=== PATIENT | male | born 1955 | race Caucasian/White ===

== ENCOUNTER 2017-12-10 02:51 | Emergency (ER) | payer MEDICARE, BC ==
[~2017-12-10] VITALS: Ht 182.9 cm; Wt 130.0 kg
[2017-12-10 02:59] VITALS: BP 217/106; PULSE 60; RESP 20; TEMP 97.4; O2SAT 99
[2017-12-10] MEDS ORDERED: ASPI81CH6 CHEW (03:01)
[2017-12-10] MEDS ORDERED: LEVO.075 PO (03:01)
[2017-12-10] MEDS ORDERED: PROS5TAB PO (03:01)
[2017-12-10] MEDS ORDERED: TAMS5CAP PO (03:01)
[2017-12-10] MEDS ORDERED: BLOOD PRESSURE (03:02)
[2017-12-10] MEDS ORDERED: NABU1TAB33 PO (03:17)
[2017-12-10] MEDS ORDERED: AMLO2.5T PO (03:17)
[2017-12-10] MEDS ORDERED: FINA5TAB2 PO (03:17)
[2017-12-10] MEDS ORDERED: SODIUM CHLOR 0.9% 1000 ML INJ 1,000 ML IV SCH (04:08)
[2017-12-10] MEDS ORDERED: FAMOTIDINE 20 MG/2 ML VIAL IV PUSH ONE (04:15)
[2017-12-10] MEDS ORDERED: SODIUM CHLORIDE 0.9% FLUSH 10 ML FLUSH IV FLUSH PRN (04:15)
[2017-12-10] MEDS ORDERED: MORPHINE SULFATE 4 MG/ML INJ IV PUSH ONE ×2 (04:15→05:30)
[2017-12-10] MEDS ORDERED: ONDANSETRON ODT 4 MG TAB PO ONE (04:15)
--- NOTE | 2017-12-10 04:16 | PD ---
HPI Chief Complaint: Abdominal Pain Time Seen by Provider: 03:39 Travel History International Travel<30 days: No Contact w/Intl Traveler<30days: No Traveled to known affect area: No History of Present Illness HPI The patient is a 62-year-old male who presents to the emergency department for abdominal pain. The patient states his abdominal pain started earlier today at approximately 4 PM when he was in the [place]. The patient thought it was hunger pains at that time and subsequently ate [place] lobster, vegetables, and yellow rice. However, the pains did not improve. Therefore, the patient drove from the [place] to [facility] when he decided to be seen for his abdominal pain. The abdominal pain is periumbilical, nonradiating , associated with mild nausea, but no vomiting. He has had 2 normal bowel movements earlier today without difficulty. He denies any dysuria, frequency, or urgency. He denies any previous history of abdominal surgeries, pancreatitis , biliary colic, or known gallstones. He has had previous colonoscopies with polyps in the past which have been monitored but denies any known history of colon cancer. He denies any associated fever, chills, or sweats. Symptoms are moderate. PFSH Past Medical History Narrative Medical Hypertension, hyperlipidemia, hypothyroidism, benign prostatic hypertrophy, TIA Diminished Hearing: No Hypertension: Yes Immunizations Current: No Tetanus Vaccination: Unknown Influenza Vaccination: No Past Surgical History Narrative Surgical Tonsillectomy, colonoscopy, foot surgery Eye Surgery: Yes Tonsillectomy: Yes Other Surgery: Yes (PODIATRY SX) Social History Alcohol Use: No Tobacco Use: No Substance Use: No Allergies-Medications (Allergen,Severity, Reaction): Coded Allergies: milk (Verified Allergy, Intermediate, 12/10/17) peanut (Verified Allergy, Intermediate, 12/10/17) Reported Meds & Prescriptions Reported Meds & Active Scripts Active Reported Finasteride 5 Mg Tab 5 Mg PO DAILY Do not crush. Nabumetone 750 Mg Tab 750 Mg PO BID Amlodipine (Amlodipine Besylate) 2.5 Mg Tab 2.5 Mg PO DAILY [Blood Pressure] Aspirin Low Dose (Aspirin) 81 Mg Chew 81 Mg CHEW DAILY Proscar (Finasteride) 5 Mg Tab 5 Mg PO DAILY Do not crush. Synthroid (Levothyroxine Sodium) 75 Mcg Tab 75 Mcg PO DAILY Flomax (Tamsulosin HCl) 0.4 Mg Cap 0.4 Mg PO HS Review of Systems Except as stated in HPI: all other systems reviewed are Neg General / Constitutional: No: Fever, Chills Cardiovascular: No: Chest Pain or Discomfort Respiratory: No: Shortness of Breath Gastrointestinal: Positive: Nausea, Abdominal Pain, No: Vomiting, Diarrhea Genitourinary: Positive: Other (History of BPH), No: Dysuria Skin: No Rash Physical Exam Narrative GENERAL: Awake, alert, 62-year-old male who appears his stated age is in no acute respiratory distress. SKIN: Focused skin assessment warm/dry. HEAD: Atraumatic. Normocephalic. EYES: No scleral icterus noted. ENT: No nasal bleeding or discharge. Mucous membranes pink and moist. NECK: Trachea midline. No JVD. CARDIOVASCULAR: Regular rate and rhythm. No murmur appreciated. RESPIRATORY: No accessory muscle use. Clear to auscultation. Breath sounds equal bilaterally. GASTROINTESTINAL: Abdomen soft, obese, no rebound tenderness, guarding, or rigidity. MUSCULOSKELETAL: No obvious deformities. No clubbing. No cyanosis. No edema. NEUROLOGICAL: Awake and alert. No obvious cranial nerve deficits. Motor grossly within normal limits. Normal speech. PSYCHIATRIC: Appropriate mood and affect; insight and judgment normal. Data Data Last Documented VS Vital Signs Date Time Temp Pulse Resp B/P (MAP) Pulse Ox O2 Delivery O2 Flow Rate FiO2 12/10/17 04:53 64 180/99 (126) 12/10/17 04:37 100 Room Air 12/10/17 02:59 97.4 20 Orders Orders Complete Blood Count With Diff (12/10/17 04:08) Comprehensive Metabolic Panel (12/10/17 04:08) Lipase (12/10/17 04:08) Lactic Acid (12/10/17 04:08) Urinalysis - C+S If Indicated (12/10/17 04:08) Ct Abd/Pel W Iv Contrast(Rout) (12/10/17 04:08) Iv Access Insert/Monitor (12/10/17 04:08) Ecg Monitoring (12/10/17 04:08) Oximetry (12/10/17 04:08) Morphine Inj (Morphine Inj) (12/10/17 04:15) Sodium Chlor 0.9% 1000 Ml Inj (Ns 1000 M (12/10/17 04:08) Sodium Chloride 0.9% Flush (Ns Flush) (12/10/17 04:15) Electrocardiogram (12/10/17 04:08) Famotidine Inj (Pepcid Inj) (12/10/17 04:15) Ondansetron Odt (Zofran Odt) (12/10/17 04:15) Morphine Inj (Morphine Inj) (12/10/17 05:30) Iohexol 350 Inj (Omnipaque 350 Inj) (12/10/17 05:36) Ketorolac Inj (Toradol Inj) (12/10/17 06:00) Labs Laboratory Tests Test 12/10/17 04:30 12/10/17 05:45 White Blood Count 10.6 TH/MM3 Red Blood Count 5.21 MIL/MM3 Hemoglobin 16.6 GM/DL Hematocrit 46.8 % Mean Corpuscular Volume 90.0 FL Mean Corpuscular Hemoglobin 31.9 PG Mean Corpuscular Hemoglobin Concent 35.4 % Red Cell Distribution Width 13.3 % Platelet Count 188 TH/MM3 Mean Platelet Volume 7.1 FL Neutrophils (%) (Auto) 81.5 % Lymphocytes (%) (Auto) 10.7 % Monocytes (%) (Auto) 5.8 % Eosinophils (%) (Auto) 1.5 % Basophils (%) (Auto) 0.5 % Neutrophils # (Auto) 8.6 TH/MM3 Lymphocytes # (Auto) 1.1 TH/MM3 Monocytes # (Auto) 0.6 TH/MM3 Eosinophils # (Auto) 0.2 TH/MM3 Basophils # (Auto) 0.1 TH/MM3 CBC Comment DIFF FINAL Differential Comment Blood Urea Nitrogen 13 MG/DL Creatinine 1.00 MG/DL Random Glucose 106 MG/DL Total Protein 8.1 GM/DL Albumin 4.1 GM/DL Calcium Level 8.6 MG/DL Alkaline Phosphatase 88 U/L Aspartate Amino Transf (AST/SGOT) 21 U/L Alanine Aminotransferase (ALT/SGPT) 35 U/L Total Bilirubin 0.7 MG/DL Sodium Level 140 MEQ/L Potassium Level 3.6 MEQ/L Chloride Level 104 MEQ/L Carbon Dioxide Level 28.8 MEQ/L Anion Gap 7 MEQ/L Estimat Glomerular Filtration Rate 76 ML/MIN Lactic Acid Level 0.9 mmol/L Lipase 273 U/L Urine Color LIGHT-YELLOW Urine Turbidity CLEAR Urine pH 7.0 Urine Specific [place] 1.029 Urine Protein TRACE mg/dL Urine Glucose (UA) NEG mg/dL Urine Ketones NEG mg/dL Urine Occult Blood TRACE Urine Nitrite NEG Urine Bilirubin NEG Urine Urobilinogen LESS THAN 2.0 MG/DL Urine Leukocyte Esterase NEG Urine RBC 2 /hpf Urine WBC LESS THAN 1 /hpf Urine Squamous Epithelial Cells <1 /hpf Urine Hyaline Casts 2 /lpf Urine Mucus FEW /lpf Microscopic Urinalysis Comment CULT NOT INDICATED MDM Medical Decision Making Medical Screen Exam Complete: Yes Emergency Medical Condition: Yes Medical Record Reviewed: Yes Interpretation(s) EKG reveals sinus bradycardia with a heart rate of 58. No ischemic changes or ectopy noted. Last Impressions Abdomen/Pelvis CT 12/10/17 0404 Signed Impressions: CONCLUSION: 1. Gallstones in the gallbladder. No biliary tract obstruction. 2. Benign-appearing 2.7 cm left renal cyst. 3. 9 mm bladder stone. 4. Diffuse enlargement of the prostate gland. Laboratory Tests Test 12/10/17 04:30 12/10/17 05:45 White Blood Count 10.6 TH/MM3 Red Blood Count 5.21 MIL/MM3 Hemoglobin 16.6 GM/DL Hematocrit 46.8 % Mean Corpuscular Volume 90.0 FL Mean Corpuscular Hemoglobin 31.9 PG Mean Corpuscular Hemoglobin Concent 35.4 % Red Cell Distribution Width 13.3 % Platelet Count 188 TH/MM3 Mean Platelet Volume 7.1 FL Neutrophils (%) (Auto) 81.5 % Lymphocytes (%) (Auto) 10.7 % Monocytes (%) (Auto) 5.8 % Eosinophils (%) (Auto) 1.5 % Basophils (%) (Auto) 0.5 % Neutrophils # (Auto) 8.6 TH/MM3 Lymphocytes # (Auto) 1.1 TH/MM3 Monocytes # (Auto) 0.6 TH/MM3 Eosinophils # (Auto) 0.2 TH/MM3 Basophils # (Auto) 0.1 TH/MM3 CBC Comment DIFF FINAL Differential Comment Blood Urea Nitrogen 13 MG/DL Creatinine 1.00 MG/DL Random Glucose 106 MG/DL Total Protein 8.1 GM/DL Albumin 4.1 GM/DL Calcium Level 8.6 MG/DL Alkaline Phosphatase 88 U/L Aspartate Amino Transf (AST/SGOT) 21 U/L Alanine Aminotransferase (ALT/SGPT) 35 U/L Total Bilirubin 0.7 MG/DL Sodium Level 140 MEQ/L Potassium Level 3.6 MEQ/L Chloride Level 104 MEQ/L Carbon Dioxide Level 28.8 MEQ/L Anion Gap 7 MEQ/L Estimat Glomerular Filtration Rate 76 ML/MIN Lactic Acid Level 0.9 mmol/L Lipase 273 U/L Urine Color LIGHT-YELLOW Urine Turbidity CLEAR Urine pH 7.0 Urine Specific [place] 1.029 Urine Protein TRACE mg/dL Urine Glucose (UA) NEG mg/dL Urine Ketones NEG mg/dL Urine Occult Blood TRACE Urine Nitrite NEG Urine Bilirubin NEG Urine Urobilinogen LESS THAN 2.0 MG/DL Urine Leukocyte Esterase NEG Urine RBC 2 /hpf Urine WBC LESS THAN 1 /hpf Urine Squamous Epithelial Cells <1 /hpf Urine Hyaline Casts 2 /lpf Urine Mucus FEW /lpf Microscopic Urinalysis Comment CULT NOT INDICATED Differential Diagnosis Differential diagnosis includes gastritis, pancreatitis, diverticulitis, food allergy, cholecystitis, choledocholithiasis, biliary colic, atypical appendicitis, enteritis. Narrative Course IV was established, labs are drawn and sent, the patient was placed on cardiac telemetry monitoring and continuous pulse oximetry monitoring. The patient was administer morphine, Zofran, and IV fluids. Noncontrast CT of the abdomen and pelvis was obtained. CT of the abdomen and pelvis with IV contrast was ordered. The patient's white count was unremarkable, lactic acid is normal, LFTs are normal, and lipase are normal. However, the patient continued complaint of pain, therefore, the patient was administered a second dose of morphine [address] of the abdomen and pelvis reveals a benign appearing renal cyst, gallstones without any inflammatory changes around the gallbladder, enlarged prostate, and a bladder stone. However, there were no acute findings. The patient was reassessed at 5:55 AM, still had mild pain, therefore, was administered Toradol 15 mg intravenously. UA reveals trace blood , otherwise unremarkable. The patient stable for outpatient follow-up. Diagnosis Primary Impression: Abdominal pain Qualified Codes: R10.33 - Periumbilical pain Patient Instructions: General Instructions Additional Instructions: Please provide the patient a copy of his CT results and lab results at discharge. Follow-up with a primary physician. Medications as directed. Diet as tolerated. Med/Other Pt SpecificInfo: Prescription(s) given Scripts Hydrocodone-Acetaminophen ([place]) 5 Mg-325 Mg Tab 1 TAB PO Q6H Y for PAIN, #12 TAB 0 Refills Prov: Florin Montes De Oca MD 12/10/17 Dicyclomine (Bentyl) 10 Mg Cap 10 MG PO TID Y for Bowel Management, #12 CAP 0 Refills Prov: Florin Montes De Oca MD 12/10/17 Disposition: 01 DISCHARGE HOME Condition: Stable Florin Montes De Oca MD Dec 10, 2017 04:16
[2017-12-10 04:37] VITALS: O2SAT 100
[2017-12-10 04:53] VITALS: BP 180/99; PULSE 64
[2017-12-10 05:00] LABS: AUTOMATED NEUTROPHIL # 8.6 TH/MM3 (1.8-7.7); BASOPHIL # 0.1 TH/MM3 (0-0.2); BASOPHIL % 0.5 % (0.0-2.0); EOSINOPHIL # 0.2 TH/MM3 (0-0.4); EOSINOPHIL % 1.5 % (0.0-4.0); HEMATOCRIT 46.8 % (39.0-51.0); HEMOGLOBIN 16.6 GM/DL (13.0-17.0); LYMPH % 10.7 % (9.0-44.0); LYMPHOCYTE # 1.1 TH/MM3 (1.0-4.8); MEAN CORPUSCULAR HEMOGLOBIN 31.9 PG (27.0-34.0); MEAN CORPUSCULAR HGB CONC 35.4 % (32.0-36.0); MEAN PLATELET VOLUME 7.1 FL (7.0-11.0); MONO % 5.8 % (0.0-8.0); MONOCYTE # 0.6 TH/MM3 (0-0.9); NEUT % 81.5 % (16.0-70.0); PLATELET COUNT 188 TH/MM3 (150-450); RED BLOOD COUNT 5.21 MIL/MM3 (4.50-5.90); RED CELL DISTRIBUTION WIDTH 13.3 % (11.6-17.2); WHITE BLOOD COUNT 10.6 TH/MM3 (4.0-11.0)
[2017-12-10 05:19] LABS: ALBUMIN 4.1 GM/DL (3.4-5.0); ALT (GPT) 35 U/L (12-78); AST (GOT) 21 U/L (15-37); BICARBONATE 28.8 MEQ/L (21.0-32.0); BLOOD UREA NITROGEN 13 MG/DL (7-18); CALCIUM 8.6 MG/DL (8.5-10.1); CHLORIDE 104 MEQ/L (98-107); GLOMERULAR FILTRATION RATE 76 ML/MIN (>89); GLUCOSE,RANDOM 106 MG/DL (74-106); SODIUM (NA) 140 MEQ/L (136-145)
[2017-12-10 05:21] LABS: ALKALINE PHOSPHATASE 88 U/L (45-117); TOTAL BILIRUBIN ADULT 0.7 MG/DL (0.2-1.0); TOTAL PROTEIN 8.1 GM/DL (6.4-8.2)
[2017-12-10] MEDS ORDERED: IOHEXOL 350 MG/ML 10 ML VIAL (for RAD DIAG) IVCONTRAST ONE (05:36)
--- NOTE | 2017-12-10 05:45 | RADRPT ---
EXAM DATE: 12/10/2017 5:37 AM EDT AGE/SEX: 62 years / Male INDICATIONS: Diffuse abdominal pain and nausea. CLINICAL DATA: This is the patient's initial encounter. Patient reports that signs and symptoms have been present for 1 day and indicates a pain score of 7/10. MEDICAL/SURGICAL HISTORY: Hypertension. None. ORAL CONTRAST: No oral contrast ingested. RADIATION DOSE: 27.03 CTDI (mGy) COMPARISON: No prior [facility] exams available for comparison. TECHNIQUE: Multiple contiguous axial images were obtained through the abdomen and pelvis following b olus infusion of 100 ml Omnipaque 350 (iohexol) nonionic water-soluble contrast as a single exam do se. No oral contrast ingested. Using automated exposure control and adjustment of the mA and/or kV a ccording to patient size, the radiation dose was kept as low as reasonably achievable to obtain optim al diagnostic quality images. FINDINGS: Lower Lungs: The visualized lower lungs are clear. Liver: The liver has a homogeneous density without space-occupying lesion. There is no dilation of th e biliary tree. Gallstones in the gallbladder. No inflammatory changes. Spleen: Homogeneous density without enlargement. Pancreas: Unremarkable without mass or calcification. Kidneys: Normal in size and shape. No evidence of mass or hydronephrosis. No calcified renal stones. The ureters are nondilated. 2.7 cm benign-appearing left renal cyst. Adrenal Glands: Unremarkable. Aorta: The aorta and proximal iliac vessels are grossly unremarkable without aneurysmal dilation. Bowel/Mesentery: The bowel loops are grossly unremarkable. The cecum and sigmoid colon have a normal configuration. The appendix is unremarkable. There is stool throughout the colon. No inflammatory ch anges. Abdominal Wall: Intact. Retroperitoneum: No evidence of adenopathy in the retrocrural, para-aortic, or deep pelvic regions. Bladder: Contours are smooth. There is a 9 mm stone along the base of the urinary bladder on the rig ht side. Reproductive Organs: The prostate gland is mildly enlarged at 5.5 x 5.3 cm. Inguinal: The inguinal region is unremarkable without evidence of adenopathy. Bony Structures: Mild degenerative changes. CONCLUSION: 1. Gallstones in the gallbladder. No biliary tract obstruction. 2. Benign-appearing 2.7 cm left renal cyst. 3. 9 mm bladder stone. 4. Diffuse enlargement of the prostate gland. Electronically signed by: Cheikh Love MD 12/10/2017 5:44 AM EDT
[2017-12-10] MEDS ORDERED: KETOROLAC TROMETHAMINE 30 MG/ML (IVP) VIAL IV PUSH ONE (06:00)
[2017-12-10 06:05] LABS: BILIRUBIN, URINE NEG (NEG); BLOOD, URINE TRACE (NEG); GLUCOSE,URINE NEG (NEG); HYALINE CAST, URINE 2 /lpf (RARE); KETONE, URINE NEG (NEG); MUCUS URINE FEW /lpf (OCC); NITRITE,URINE NEG (NEG); SQUAMOUS EPITHELIAL CELL URINE <1 /hpf (0-5); URINE COLOR LIGHT-YELLOW (YELLW/STRAW); URINE LEUKOCYTE ESTERASE NEG (NEG)
[2017-12-10] MEDS ORDERED: NORC5TAB PO (06:16)
[2017-12-10] MEDS ORDERED: DICY10 PO (06:16)
--- NOTE | 2017-12-10 18:32 | EKG ---
Date Performed: 12/10/2017 Time Performed: 03:27:42 PTAGE: 62 years EKG: Sinus rhythm NO PREVIOUS TRACING DOCTOR: Opal Ng Interpretating Date/Time 12/10/2017 18:31:12
== END 2017-12-10 06:48 | disposition home or self-care (01) ==
LOC: NEPE 02:51
DX: R10.33 Periumbilical pain (principal); N28.1 Cyst of kidney, acquired; N21.0 Calculus in bladder; N40.0 Benign prostatic hyperplasia without lower urinary tract symptoms; E03.9 Hypothyroidism, unspecified; I10 Essential (primary) hypertension
CPT/HCPCS: 74177; 80053; 81001; 83605; 83690; 85025; 93005; 96374; 96375; 96376; 99285; J1885; J2270; J7030; Q9967